=== PATIENT | female | born 1990 | race Caucasian/White ===

== ENCOUNTER 2024-09-23 09:48 | Outpatient (CLI) | payer BC, SELFPAY ==
--- NOTE | 2024-09-23 09:45 | CRLHL7_ITS ---
For Patients: As a result of the Century Cures Act, medical imaging exams and procedure reports are released immediately into your electronic medical record. You may view this report before your referring provider. If you have questions, please contact your health care provider. INDICATION: Check viability and dates TECHNIQUE: Transvaginal scanning was performed to optimally evaluate the IUP and adnexa. Ovarian blood flow was evaluated with color-flow and pulsed Doppler. COMPARISON: None FINDINGS: There is a living IUP with gestational age of 8 weeks 2 days by LMP and 8 weeks 3 days by today`s crown-rump length EDC based on today`s crown-rump length is 05/02/2025. The embryonic heart rate is measured at 165 beats per minute. The placenta is not yet formed. A 2.3 x 1.9 x 0.8 cm subchorionic hemorrhage is noted. Neither ovary is visualized. No adnexal mass or free fluid is apparent. IMPRESSION: 1. Living IUP with gestational age of 8 weeks 3 days by today`s crown-rump length and EDC of 05/02/2025. 2. 2.3 x 1.9 x 0.8 cm subchorionic hemorrhage. Dictated by Jatinder Castillo MD @ 09/25/2024 6:22:45 AM (Electronically Signed)
== END 2024-09-23 09:49 | disposition home or self-care (01) ==
LOC: US 09:48
PROVIDERS: PCP Family Medicine; Visit Provider Advanced Practice Midwife
DX: Z34.91 Encounter for supervision of normal pregnancy, unspecified, first trimester (principal); O20.9 Hemorrhage in early pregnancy, unspecified; Z3A.08 8 weeks gestation of pregnancy
CPT/HCPCS: 76817

== ENCOUNTER 2024-09-23 10:49 | Outpatient (CLI) | payer BC, SELFPAY | END 2024-09-23 10:50 | disposition home or self-care (01) | PROVIDERS: PCP Family Medicine; Visit Provider Advanced Practice Midwife | DX: Z34.91 Encounter for supervision of normal pregnancy, unspecified, first trimester (principal); Z3A.08 8 weeks gestation of pregnancy | CPT/HCPCS: 80306; 82565; 82570; 83020; 83021; 84156; 84450; 84460; 84520; 85660; 86592; 86593; 86703; 86704; 86706; 86762; 86780; 86787; 86803; 86850; 86870; 86880; 86900; 86901; 86905; 87086; 87340 ==

== ENCOUNTER 2024-12-10 08:05 | Outpatient (CLI) | payer BC, SELFPAY ==
--- NOTE | 2024-12-10 08:15 | CRLHL7_ITS ---
For Patients: As a result of the 21st Century Cures Act, medical imaging exams and procedure reports are released immediately into your electronic medical record. You may view this report before your referring provider. If you have questions, please contact your health care provider. OB ULTRASOUND GREATER THAN 14 WEEKS ANATOMY SURVEY, 12/10/2024 CLINICAL HISTORY: anatomy survey. COMPARISON: 09/23/2024. TECHNIQUE: Real time valdivia scale imaging of the fetus was performed transabdominally. FINDINGS: LMP: 07/27/2024. TERRENCE by LMP: 05/03/2025. GA: 19 weeks 3 days. Position: Multiple positions. Placenta/Cord: Anterior. Technique: TA. Placenta tip to internal OS: 5.4 cm. Umbilical Cord: 3 vessel cord. Placental Insertion: Central. Amniotic Fluid: 3.9 cm SDP. Cervix: Visualized. Technique: TA. Length of closed cervix: 5.5 cm. Observed structures: Calvarium/Spine: Cerebellum 21.2 cm, 21 weeks 2 days. Cisterna Magna 3.8 mm Nuchal Fold 2.7 mm Lateral Ventricle 6.5 mm CSP Midline Falx Choroid Plexus Spine Abdomen: Stomach Abd Cord Insert Urinary Bladder Kidneys Face: Orbital View Limbs: Upper Extremities Lower Extremities Hands Feet Vascular: 4 Ch Heart Biometry: BPD: 4.2 cm, 18 weeks 6 days. 24.4% HC: 16.4 cm, 19 weeks 1 day. 28.1% AC: 14.9 cm, 20 weeks 1 day. 70.1% FL: 3.1 cm, 19 weeks 4 days. 497% FL/AC: 20.8% HC/AC: 1.1 Heart Rate: 1398 bpm. Age by this US: 19 weeks 6 days. TERRENCE by this US: 04/30/2025. EFW: 313.6 grams 0 lb 11 oz. Percentile by TERRENCE: 67.6% IMPRESSION: 1. Concordance of clinical and sonographic dating. 2. Incomplete visualization of the diaphragm, nose, lips, profile, LVOT, RVOT, three vessel view and three vessel trachea view. Remainder of the anatomic survey normal. Short term follow-up recommended. 3. Indeterminate area of decreased echogenicity adjacent to the placenta measuring 8.0 x 2.0 x 2.5 cm, likely of doubtful significance, but recommend attention on follow-up. Sincere Salas M.D. Diagnostic Radiologist [email or web address] Transcribed: 1:16 PM DW/Dictated by: Sincere Salas MD @ 12/10/2024 12:58:00 PM (Electronically Signed)
== END 2024-12-10 08:06 | disposition home or self-care (01) ==
LOC: US 08:07
PROVIDERS: PCP Family Medicine; Visit Provider Obstetrics & Gynecology
DX: Z34.92 Encounter for supervision of normal pregnancy, unspecified, second trimester (principal); O35.AXX0 Maternal care for other (suspected) fetal abnormality and damage, fetal facial anomalies, not applicable or unspecified; Z3A.19 19 weeks gestation of pregnancy
CPT/HCPCS: 76805; 80306

== ENCOUNTER 2025-01-08 08:06 | Outpatient (CLI) | payer BC, SELFPAY ==
--- NOTE | 2025-01-08 08:15 | CRLHL7_ITS ---
For Patients: As a result of the Century Cures Act, medical imaging exams and procedure reports are released immediately into your electronic medical record. You may view this report before your referring provider. If you have questions, please contact your health care provider. OB ULTRASOUND FOLLOWUP LIMITED, 01/08/2025 CLINICAL HISTORY: Suboptimal views on anatomy scan. COMPARISON: 12/10/2024, 09/23/2024. TECHNIQUE: Real time valdivia scale imaging of the fetus was performed transabdominal. FINDINGS: TERRENCE by LMP/US: 05/03/2025. GA: 23 weeks 4 days. GESTATION: Single. CERVIX: Not visualized. POSITIONING: Vertex. AMNIOTIC FLUID: 5.2 cm, SDP. PLACENTA: Technique: TA. Placenta Position: Anterior. DOPPLERS: Heart Rate: 130 bpm. BIOMETRY: BDP: 5.6 cm, 23 weeks 1 day. 27% HC: 21 cm, 23 weeks 1 day. 18% AC: 20 cm, 24 weeks 5 days. 75% FL: 4.1 cm, 23 weeks 3 days. 31% FL/AC Ratio: 20.59% HC/AC Ratio: 1.05. EFW: 645 grams, 1 lb 7 oz. Age by this US: 23 weeks 4 days. TERRENCE by this US: 05/03/2025. Percentile by TERRENCE: 60% IMPRESSION: 1. Sonographic gestational age 23 weeks 4 days and sonographic due date 05/03/2025. 2. Estimated weight 68th percentile. Abdominal circumference 75th percentile. 3. Normal heart, diaphragm, profile, nose and lips. 4. Incidental placental madrigal versus residual blood products noted measuring 7.1 x 0.7 x 0.8 cm. Sincere Salas M.D. Diagnostic Radiologist [email or web address] Transcribed: 10:29 am DW/Dictated by: Sincere Salas MD @ 01/08/2025 10:11:00 AM (Electronically Signed)
== END 2025-01-08 08:07 | disposition home or self-care (01) ==
LOC: US 08:07
PROVIDERS: PCP Family Medicine; Visit Provider Obstetrics & Gynecology
DX: Z34.92 Encounter for supervision of normal pregnancy, unspecified, second trimester (principal); Z3A.23 23 weeks gestation of pregnancy
CPT/HCPCS: 76816

== ENCOUNTER 2025-02-05 10:34 | Outpatient (CLI) | payer BC, SELFPAY ==
--- NOTE | 2025-02-05 10:45 | CRLHL7_ITS ---
For Patients: As a result of the Century Cures Act, medical imaging exams and procedure reports are released immediately into your electronic medical record. You may view this report before your referring provider. If you have questions, please contact your health care provider. OBSTETRICAL ULTRASOUND ??? FOLLOW-UP, 02/05/2025 INDICATION: Cannabis use. CLINICAL HISTORY: LMP: 07/27/2024 TERRENCE by LMP: 05/03/2025 Gestational Age: 27 weeks 4 days COMPARISON: 12/10/2024, 01/08/2025 TECHNIQUE: Real-time valdivia-scale transabdominal imaging of the fetus was performed. FINDINGS: Fetus: Single Cervix: Not visualized positioning: Transverse Amniotic Fluid: DINESH: 28.2 cm 8.3 cm SDP Placenta technique: Transabdominal Placenta position: Anterior, fundal heart rate: 138 bpm BIOMETRY: BPD: 7.0 cm, 28 weeks 0 days, 52% HC: 26.2 cm, 28 weeks 3 days, 49% AC: 24.7 cm, 28 weeks 6 days, 81% FL: 5.1 cm, 27 weeks 2 days, 28% FL/AC Ratio: 20.66% HC/AC ratio: 1.06 EFW: 1203 grams; 2 lbs. 10 oz. age by this ultrasound: 28 weeks 1 day TERRENCE by this ultrasound: 04/29/2025 Percentile by TERRENCE: 66% IMPRESSION: 1. Sonographic gestational age 28 weeks 1 day and sonographic due date 04/29/2025. Good correlation with dates. Normal interval growth. 2. Estimated weight is 66th percentile. Abdominal circumference is 81st percentile. 3. Amniotic fluid single deepest pocket is 8.3 cm. DINESH is 28.2 cm. SINCERE ALBERTO M.D. Diagnostic Radiologist [email or web address] Transcribed: 2:[address]/Dictated by: Sincere Alberto MD @ 02/05/2025 1:39:00 PM (Electronically Signed)
== END 2025-02-05 10:35 | disposition home or self-care (01) ==
LOC: US 10:35
PROVIDERS: PCP Family Medicine; Visit Provider Obstetrics & Gynecology
DX: O99.323 Drug use complicating pregnancy, third trimester (principal); F12.10 Cannabis abuse, uncomplicated; Z3A.28 28 weeks gestation of pregnancy
CPT/HCPCS: 76816; 86850; 86870; J2791

== ENCOUNTER 2025-02-05 11:37 | Outpatient (CLI) | payer BC, SELFPAY | END 2025-02-05 11:38 | disposition home or self-care (01) | LOC: NFLDREF 11:38 | PROVIDERS: PCP Family Medicine; Visit Provider Obstetrics & Gynecology | DX: Z36.89 Encounter for other specified antenatal screening (principal); O26.893 Other specified pregnancy related conditions, third trimester; Z67.21 Type B blood, Rh negative; O40.3XX0 Polyhydramnios, third trimester, not applicable or unspecified; O99.343 Other mental disorders complicating pregnancy, third trimester; F32.A Depression, unspecified; F41.9 Anxiety disorder, unspecified; O99.213 Obesity complicating pregnancy, third trimester; E66.9 Obesity, unspecified; Z3A.28 28 weeks gestation of pregnancy | CPT/HCPCS: 86592; 86593; 86780; 86850; 86860; 86870; 86880; 86885; 86900; 86901; 86905; 86906; J2791 ==

== ENCOUNTER 2025-02-17 07:19 | Outpatient (CLI) | payer BC, SELFPAY ==
--- NOTE | 2025-02-17 07:15 | CRLHL7_ITS ---
For Patients: As a result of the Cures Act, medical imaging exams and procedure reports are released immediately into your electronic medical record. You may view this report before your referring provider. If you have questions, please contact your health care provider. OBSTETRICAL ULTRASOUND ??? LIMITED, 02/17/2025 INDICATION: Polyhydramnios. DINESH check. CLINICAL HISTORY: TERRENCE by LMP: 05/03/2025 Gestational Age: 29 weeks 2 days COMPARISON: 02/05/2025, 12/10/2024 TECHNIQUE: Real-time valdivia-scale transabdominal imaging of the fetus was performed. FINDINGS: Fetus: Single Cervix: Not visualized positioning: Vertex Amniotic Fluid: DINESH: 26.8 cm 7.5 cm SDP Placenta technique: Transabdominal Placenta position: Anterior heart rate: 145 bpm IMPRESSION: 1. Amniotic fluid index is 26.8 cm. Single deepest pocket is 7.5 cm. 2. Vertex position. SINCERE ALBERTO M.D. Diagnostic Radiologist [email or web address] Transcribed: 1:[address]/Dictated by: Sincere Alberto MD @ 02/17/2025 10:35:00 AM (Electronically Signed)
== END 2025-02-17 07:20 | disposition home or self-care (01) ==
LOC: US 07:20
PROVIDERS: PCP Family Medicine; Visit Provider Obstetrics & Gynecology
DX: O40.3XX0 Polyhydramnios, third trimester, not applicable or unspecified (principal); Z3A.29 29 weeks gestation of pregnancy
CPT/HCPCS: 76815

== ENCOUNTER 2025-02-26 07:24 | Outpatient (CLI) | payer BC, SELFPAY ==
--- NOTE | 2025-02-26 07:15 | CRLHL7_ITS ---
For Patients: As a result of the Cures Act, medical imaging exams and procedure reports are released immediately into your electronic medical record. You may view this report before your referring provider. If you have questions, please contact your health care provider. OBSTETRICAL ULTRASOUND ??? LIMITED, 02/26/2025 INDICATION: Polyhydramnios, CLINICAL HISTORY: LMP: 07/27/2024 Gestational Age: 30 weeks 4 days COMPARISON: 02/17/2025, 02/05/2025, 12/10/2024. TECHNIQUE: Real-time valdivia-scale transabdominal imaging of the fetus was performed. FINDINGS: Fetus: Single Cervix: Visualized, 5.4 cm positioning: Transverse, right Amniotic Fluid: DINESH: 23.0 cm 8.1 cm SDP Placenta technique: Transabdominal Placenta position: Anterior heart rate: 128 bpm IMPRESSION: Amniotic fluid single deepest pocket 8.1 cm. Four-quadrant DINESH 23.0 cm. SINCERE ALBERTO M.D. Diagnostic Radiologist [email or web address] Transcribed: 9:[address]/Dictated by: Sincere Alberto MD @ 02/26/2025 9:15:00 AM (Electronically Signed)
== END 2025-02-26 07:25 | disposition home or self-care (01) ==
LOC: US 07:24
PROVIDERS: PCP Family Medicine; Visit Provider Obstetrics & Gynecology
DX: O40.3XX0 Polyhydramnios, third trimester, not applicable or unspecified (principal); Z3A.30 30 weeks gestation of pregnancy
CPT/HCPCS: 76815

== ENCOUNTER 2025-03-12 09:11 | Outpatient (CLI) | payer BC, SELFPAY ==
--- NOTE | 2025-03-12 09:15 | CRLHL7_ITS ---
For Patients: As a result of the Century Cures Act, medical imaging exams and procedure reports are released immediately into your electronic medical record. You may view this report before your referring provider. If you have questions, please contact your health care provider. OB ULTRASOUND FOLLOW-UP, 03/12/2025 CLINICAL HISTORY: Cannibis use. COMPARISON: 02/26/2025. 02/17/2025, 02/05/2025. TECHNIQUE: Real time valdivia scale imaging of the fetus was performed. Evaluate anatomy. Transabdominal imaging performed. FINDINGS: TERRENCE by LMP: 05/03/2025. GA: 32 weeks 4 days. GESTATION: Single. CERVIX: Not visualized. POSITIONING: Breech. AMNIOTIC FLUID: 23.2 cm DINESH. 6.6 cm SDP. PLACENTA: Technique: TA. Placenta position: Anterior. DOPPLERS: heart rate: 145 bpm. BIOMETRY: BPD: 8.4 cm, 33 weeks 4 days. 73% HC: 31.6 cm, 35 weeks 3 days. 85% AC: 30.2 cm, 34 weeks 1 day. 88% FL: 6.1 cm, 31 weeks 5 days. 18% FL/AC Ratio: 20.27% HC/AC Ratio: 1.05. EFW: 2216 grams, 4 lb 14 oz. Age by this US: 33 weeks 5 days. TERRENCE by this US: 04/25/2025. Percentile by TERRENCE: 71% IMPRESSION: 1. Sonographic gestational age 33 weeks 5 days and sonographic due date 04/25/2025. Sonographic age is 8 days ahead of the clinical age. 2. Estimated weight 71st percentile. Abdominal circumference 88th percentile. Sincere Salas M.D. Diagnostic Radiologist [email or web address] Transcribed: 5:02 pm DW/Dictated by: Sincere Salas MD @ 03/12/2025 4:14:00 PM (Electronically Signed)
== END 2025-03-12 09:12 | disposition home or self-care (01) ==
LOC: US 09:12
PROVIDERS: PCP Family Medicine; Visit Provider Obstetrics & Gynecology
DX: O99.323 Drug use complicating pregnancy, third trimester (principal); F12.90 Cannabis use, unspecified, uncomplicated; Z3A.32 32 weeks gestation of pregnancy
CPT/HCPCS: 76816

== ENCOUNTER 2025-03-26 07:13 | Outpatient (CLI) | payer BC, SELFPAY ==
--- NOTE | 2025-03-26 07:15 | CRLHL7_ITS ---
For Patients: As a result of the Cures Act, medical imaging exams and procedure reports are released immediately into your electronic medical record. You may view this report before your referring provider. If you have questions, please contact your health care provider. OB ULTRASOUND FOLLOWUP/LIMITED, 03/26/2025 CLINICAL HISTORY: Polyhydramnios. COMPARISON: 03/12/2025, 02/26/2025, 02/17/2025. TECHNIQUE: Real time valdivia scale imaging of the fetus was performed. Transabdominal imaging performed. FINDINGS: TERRENCE by LMP: 05/03/2025. GA: 34 weeks 4 days. Positioning: Transverse. Amniotic Fluid: 19.2 cm DINESH. 7.3 cm SDP. Placenta: Technique: TA. Placenta Position: Anterior. Dopplers: Heart Rate: 130 bpm. IMPRESSION: Amniotic fluid single deepest pocket 7.3 cm. DINESH 19.2 cm. Sincere Salas M.D. Diagnostic Radiologist [email or web address] Transcribed: 8:25 am DW/Dictated by: Sincere Salas MD @ 03/27/2025 6:13:00 AM (Electronically Signed)
--- OUTSIDE RECORDS SUMMARY | 2025-03-27 01:03 | XMS_ITS | Encounter Summary ---
Author Organization [place] Address [facility] [address] Care Team Providers Care Paint Prep Technician Name Role Phone Manjeet Nogueira MD Primary Care Provider Arleen Sharp RN Unavailable [phone] Ramirez Gonzalez MD Unavailable Yuko Arzate PA-C Unavailable [phone] Encounter Details Date Type Department Care Team (Late st Contact Info) Description 02/17/2015 MyC Medical Advice Neurology Clinic [facility] 1st Floor, Clinic [address] [place] [phone] Ramirez Gonzalez MD [address] [place] [address] Social History Tobacco Use Types Packs/Day Years Used Date Smoking Tobacco: Former Cigarettes Q uit: 07/21/2012 Smokeless Tobacco: Never Alcohol Use Standard Drinks/Week Comments Yes 0 (1 standard drink = 0.6 oz pur e alcohol) Comments No Sex and Gender Information Value Date Recorded Sex Assigned at Not on file 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 Gender Identity Not on file Sexual Orientation Not on file documented as of this encounter Plan of Treatment Not on file documented as of this encounter Visit Diagnoses Not on filedocumented in this encounter Care Teams Paint Prep Technician Relationship Specialty Start Date End Date Manjeet Nogueira MD PCP - General Internal Medicine 09/04/12 Arleen Mathis, RAMU Nurse Coordinator Neurology 02/04/15 03/19/19 Ramirez Gonzalez MD [address] [facility] [address] [place] [address] Resident Neurology 02/17/15 Yuko Arzate PATelmaC [address] [facility] [address] [place] [address] Physician Parker Physician Parker 02/17/1509/22 documented as of this encounter
--- OUTSIDE RECORDS SUMMARY | 2025-03-27 01:03 | XMS_ITS | Encounter Summary ---
Author Organization [place] Address [facility] [place] [address] Care Team Providers Care Coat Cutter Name Role Phone Manjeet Nogueira MD Primary Care Provider Arleen Sharp RN Unavailable [phone] Ramirez Gonzalez MD Unavailable [phone] Yuko Arzate PA-C Unavailable [phone] Encounter Details Date Type Department Care Team (Late st Contact Info) Description 02/07/2015 MyC Medical Advice Neurology Clinic [facility] 1st Floor, Clinic [address] [place] [phone] Ramirez Gonzalez MD [address] [place] [address] Social History Tobacco Use Types Packs/Day Years Used Date Smoking Tobacco: Former Cigarettes Q uit: 07/21/2012 Smokeless Tobacco: Never Alcohol Use Standard Drinks/Week Comments Yes 0 (1 standard drink = 0.6 oz pur e alcohol) Comments No Sex and Gender Information Value Date Recorded Sex Assigned at Not on file Legal Sex Female 1:29 PM DIRECTOR CLINICAL INFORMATION SERVICES Gender Identity Not on file Sexual Orientation Not on file documented as of this encounter Plan of Treatment Not on file documented as of this encounter Visit Diagnoses Not on filedocumented in this encounter Care Teams Coat Cutter Relationship Specialty Start Date End Date Manjeet Nogueira MD PCP - General Internal Medicine 09/04/12 Arleen Mathis, RAMU Nurse Coordinator Neurology 02/04/15 03/19/19 Ramirez Gonzalez MD [address] [facility] [address] [place] [address] Resident Neurology 02/17/15 Yuko Arzate PATelmaC [address] [facility] [address] [place] [address] Physician Box Truck Owner Operator Physician Box Truck Owner Operator 02/17/1509/22 documented as of this encounter
--- OUTSIDE RECORDS SUMMARY | 2025-03-27 01:03 | XMS_ITS | Encounter Summary ---
Author Organization [place] Address [facility] [place] [address] Care Team Providers Care Dental Appliance Mechanic Name Role Phone Manjeet Nogueira MD Primary Care Provider Arleen Sharp RN Unavailable Ramirez Gonzalez MD Unavailable Yuko Arzate PA-C Unavailable [phone] Encounter Details Date Type Department Care Team (Late st Contact Info) Description 02/04/2015 MyC Medical Advice Neurology Clinic [facility] 1st Floor, Clinic [address] [place] [phone] Ramirez Gonzalez MD [address] [place] [address] Social History Tobacco Use Types Packs/Day Years Used Date Smoking Tobacco: Former Cigarettes Q uit: 07/21/2012 Smokeless Tobacco: Never Alcohol Use Standard Drinks/Week Comments Yes 0 (1 standard drink = 0.6 oz pur e alcohol) Comments No Sex and Gender Information Value Date Recorded Sex Assigned at Not on file 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 [address] [place] [address] Resident Neurology 02/17/15 Yuko Arzate PATelmaC [address] [facility] [address] [place] [address] Physician Glove Turner Physician Glove Turner 02/17/1509/22 documented as of this encounter
--- OUTSIDE RECORDS SUMMARY | 2025-03-27 01:03 | XMS_ITS | Encounter Summary ---
Author Organization [place] Address Pending sale to [facility]0 [facility] [place] [address] Care Team Providers Care Saddle And Harness Maker Name Role Phone Manjeet Nogueira MD Primary Care Provider Arleen Sharp RN Unavailable Ramirez Gonzalez MD Unavailable Yuko Arzate PA-C Unavailable Reason for Visit * Reason Onset Date Comments MyChart Communication 06/07/2014 Fioricet r efmarleni Encounter Details Date Type Department Care Team (Late st Contact Info) Description 06/07/2014 MyC Medical Advice [address] [phone] Yuko Arzate, PA-C [address] 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 Which pharmacy? Rx at [facility] desk. Rajeev Tipton RN * Telephone Encounter - Yuko Arzate PA-C - 06/10/2014 9:38 AM CDT Rx in my outbox * Telephone Encounter - Rajeev Tipton RN - 06/08/2014 7:15 AM CDT Fioricet is not a PSO medication, forwarded to provider for authorization. Rajeev Tipton RN documented in this encounter Plan of Treatment Not on file documented as of this encounter Visit Diagnoses Diagnosis Headache(784.0)- Primary Headache documented in this encounter Care Teams Saddle And Harness Maker Relationship Specialty Start Date End Date Manjeet Nogueira MD PCP - General Internal Medicine 09/04/12 Arleen Mathis RN Nurse Coordinator Neurology 02/04/15 03/19/19 Ramirez Gonzalez MD [address] [place] [address] Resident Neurology 02/17/15 Yuko Arzate PA-C [address] [place] [address] Physician Dermatologist And Dermatopathologist Physician Dermatologist And Dermatopathologist 02/17/1509/22 documented as of this encounter
--- OUTSIDE RECORDS SUMMARY | 2025-03-27 01:03 | XMS_ITS | Clinical Summary ---
Author Organization [place] Address [address] [facility] [place] [address] Care Team Providers Care Toilet Attendant Name Role Phone Manjeet Nogueira MD Primary Care Provider Ramirez Turner MD Unavailable Allergies Active Allergy Reactions Criticality Noted Date Comments Adhesive Tape 02/03/2015 Swelling on skin Cefprozil Nausea and Vomiting 05/21/2014 Dexamethasone 03/17/2015 aggitation Lactose GI Disturbance 07/15/2014 Metoclopramide 03/17/2015 aggitation Medications ondansetron (ZOFRAN) 4 MG tabletIndicatio ns:Headache(784 .0) Take 4 mg by mouth as needed 06/02/2014 Active traZODone (DESYREL) 50 MG tabletIndicatio ns:Headache(784 .0) 06/30/2014 Active propranolol (INDERAL) 80 MG tabletIndicatio ns:LUQ abdominal pain,Gastritis Take 80 mg by mouth daily 01/20/2015 Active MAGNESIUM OXIDE PO Take by mouth daily Active Pyridoxine HCl (VITAMIN B6 PO) Take 100 mg by mouth daily Active Merino-3 Fatty Acids (OMEGA-3 FISH OIL PO) Take by mouth daily Active gabapentin (NEURONTIN) 300 MG capsuleIndicati ons:Occipital neuralgia Take 1 capsule (300 mg) by mouth 3 times daily 90 capsule 2 02/25/2015 Active TiZANidine HCl (ZANAFLEX PO) Take 4 mg by mouth every 6 hours as needed for muscle spasms Active TRAMADOL HCL PO Take 50 mg by mouth every 6 hours as needed for moderate to severe pain Active indomethacin (INDOCIN) 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 [facility]erral [facility] per guidelines. 02/09/2015 colp with chronic inflammation and squamous atypia favor HPV. Recommend every 6 month pap with repeat colposcopy. 02/02/17 Would consider patient to be lost to follow-up. Postural orthostatic tachycardia syndrome 2014 Cervicalgia 08/21/2014 Vitamin D deficiency disease 08/21/2014 Headache 05/28/2014 Overview (07/02/2015): Problem list name updated by automated process. Provider to review Insomnia 05/28/2014 Tachycardia 05/21/2014 Overview (07/02/2015): Problem list name updated by automated process. Provider to review CARDIOVASCULAR SCREENING; LDL GOAL LESS THAN 160 05/21/2014 Immunizations Immunization Administration Dates Next Due HEPA 04/25/2010,12/24/2007 HIB (PRP-T) 03/13/1994,06/20/1993,04/11/1993 ,02/14/1993 HPV 09/04/2008,04/06/2008,12/24/2007 HepB 08/21/2014,06/20/1993,02/14/1993 ,1992 Historical DTP/aP 06/16/2014,06/20/1993,04/11/19 93,02/14/1993 Influenza (H1N1) 09/21/2009 Influenza (IIV3) PF 06/01/2014,06/24/2013 MMR (MMRII) 05/16/2004,03/13/1994 Mantoux Tuberculin Skin Test 06/24/2013 Meningococcal (Menomune ) 02/12/2014,04/17/2005 OPV, trivalent, live 06/16/1994,06/20/1993,04/11,02/14/1993 TD,PF 7+ (Tenivac) 04/17/2005 TDAP (Adacel,Boostrix) 02/12/2014 Family History Medical History Relation Comments Hypertension Father Psychotic Disorder Father ADHD Myocardial Infarction Maternal Grandfather Cancer Maternal Grandmother Diabetes Mother Hypertension Mother Lipids Mother Myocardial Infarction Paternal Grandfather Cancer Paternal Grandmother Relation Status Comments Father Maternal Grandfather Maternal Grandmother Mother Paternal Grandfather Paternal Grandmother Social History Tobacco Use Types Packs/Day Years Used Date Smoking Tobacco: Former Cigarettes Q uit: 07/21/2012 Smokeless Tobacco: Never Alcohol Use Standard Drinks/Week Comments Yes 0 (1 standard drink = 0.6 oz pur e alcohol) Adolescent Education Answer Date Record ed Getting School Help Needed Not on file 06/22 Comments No Sex and Gender Information Value Date Recorded Sex Assigned at Not on file 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 Gender Identity Not on file Sexual Orientation Not on file Last Filed Vital Signs Vital Sign Reading Time Taken Comments Blood Pressure 115/63 03/17/2015 2:40 PM CDT Pulse 91 03/17/2015 2:40 PM CDT Temperature 36.7 C (98.1 F) 02/24/2015 5:25 PM CDT Respiratory Rate 14 02/17/2015 2:12 PM CDT Oxygen Saturation 98% 02/24/2015 5:25 PM CDT Inhaled Oxygen Concentration - - Weight 96.6 kg (213 lb) 03/17/2015 2:40 PM CDT Height 158.8 cm (5' 2.5) 03/17/2015 2:40 PM CDT Body Mass Index 38.34 03/17/2015 2:40 PM CDT Plan of Treatment Not on file [place] [address] Care Teams Toilet Attendant Relationship Specialty Start Date End Date Manjeet Nogueira MD PCP - General Internal Medicine 09/04/12 Ramirez Gonzalez MD [address] [facility] [address] [place] [address] Resident Neurology 02/17/15
--- OUTSIDE RECORDS SUMMARY | 2025-03-27 01:03 | XMS_ITS | Encounter Summary ---
Author Organization [place] Address [facility] [place] [address] Care Team Providers Care Medical Biller Coder Name Role Phone Manjeet Nogueira MD Primary Care Provider Arleen Sharp RN Unavailable [phone] Ramirez Gonzalez MD Unavailable [phone] Yuko Arzate PA-C Unavailable [phone] Reason for Visit * Reason Onset Date Comments MyChart Communication 02/08/2015 pap Encounter Details Date Type Department Care Team (Latest Contact Info) Description 02/08/2015 MyC Medical Advice [address] [address] Zayra Antonio APRN SKIN DIVING TEACHER MyChart Communication (pap) Social History Tobacco Use Types Packs/Day Years Used Date Smoking Tobacco: Former Cigarettes Q uit: 07/21/2012 Smokeless Tobacco: Never Alcohol Use Standard Drinks/Week Comments Yes 0 (1 standard drink = 0.6 oz pur e alcohol) Comments No Sex and Gender Information Value Date Recorded Sex Assigned at Not on file Legal Sex Female 1:29 PM 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 documented in this encounter Plan of Treatment Not on file documented as of this encounter Visit Diagnoses Not on filedocumented in this encounter Care Teams Medical Biller Coder Relationship Specialty Start Date End Date Manjeet Nogueira MD PCP - General Internal Medicine 09/04/12 Arleen Mathis RN Nurse Coordinator Neurology 02/04/15 03/19/19 Ramirez Gonzalez MD [address] [facility] [address] [place] [address] Resident Neurology 02/17/15 Yuko Arzate, PATelmaC [address] [facility] [address] [place] [address] Physician Biofuels Production Manager Physician Biofuels Production Manager 02/17/1509/22 documented as of this encounter
--- OUTSIDE RECORDS SUMMARY | 2025-03-27 01:03 | XMS_ITS | Clinical Summary ---
Author Organization [facility] Address [address] [place] [id number] Care Team Providers Care Machinist Helper Name Role Phone Zulma Rcihards MD Unavailable [phone] Yoselyn Mathias MD Primary Care P rovider Allergies Active Allergy Reactions Criticality Noted Date Comments Adhesive Rash 02/04/2015 Latex portion of tape Plastic and paper tape as well as bandaids Blood-Group Specific Substance Other - Describe In Comment Field 08/12/2018 Patient has a Non Specific antibody and Probable passive Anti-D. Blood products may be delayed. Draw patient 24 hours prior to transfusion. Draw one red top and two purple top tubes for all type and screen orders. Cefprozil Other - Describe In Comment Field,Vomiting 02/04/2008 emesis Dexamethasone Agitation 03/16/2015 Pt states also feels tingling all over body Latex Other - Describe In Comment Field 08/19/2015 Swelling inside of her mouth Metoclopramide Hcl Agitation 03/16/2015 Medications valACYclovir (VALTREX) 1 gram tablet 0 Active traZODone (DESYREL) 100 mg tabletIndications :Anxiety and depression Take 1-2 Tablets (100-200 mg) by mouth at bedtime. 120 Tablet 3 3 Active phentermine (IONAMIN) 15 mg capsuleIndication s:Weight loss counseling, encounter for Take 1 Capsule (15 mg) by mouth once daily before a meal. 90 Capsule 3 4 Active topiramate (TOPAMAX) 25 mg tabletIndications :Weight loss counseling, encounter for Take 1 Tablet (25 mg) by mouth once daily. 90 Tablet 3 4 Active Pristiq 50 mg Extended-Release tablet Take 50 mg by mouth once daily in the morning. Active lamoTRIgine 150 mg tablet Take 150 mg by mouth once daily. 4 Active hyoscyamine (LEVBID) 0.375 mg Controlled-Releas e tabletIndications :Irritable bowel syndrome, unspecified type Take 1 Tablet (0.375 mg) by mouth every 12 hours. 60 Tablet 11 4 Active ondansetron (ZOFRAN) 4 mg tabletIndications :Irritable bowel syndrome with both constipation and diarrhea Take 1 Tablet (4 mg) by mouth every 8 hours if needed for Nausea/Vomit ing. 30 Tablet 4 Active Active Problems Problem Noted Date Diagnosed Date Hyperlipidemia 2023 Overview (2023): LDL of 130 on November 2022 [facility] Supervision of high-risk 1 Overview (09/02/2021): [facility] CONSULTATION ON 09/13/21 --Virtual Visit REASON FOR CONSULT: Pre-term prevention? Hillary? Recommendations for BMI>40 What would you like to discuss or review? pre-term prevention, reccomendations for BMI >40 [facility] Perinatology Services:(select all that apply) testing/delivery recommendations Consult on risks/management TODAY'S APPOINTMENT: MD Consultation PRIMARY DIAGNOSIS: 30 y.o. Estimated Date of Delivery: 04/09/22 H/O two prior deliveries: --2019: 34w5d PTROM --2020: 36w6d PTROM Closely spaced pregnancies POTS Depression/Anxiety--on Zoloft Rh NEG BMI 40 LAST GROWTH: 08/22/21 (10w1d) TERRENCE 04/09/22 REFERRING PHYSICIAN/PHONE/LAST UPDATE: Dr. 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 See Office visit dated 04/24/19: Return to normal screening interval if normal. 11/2022 NIL/HPV negative. Plan: Pap/HPV due 11/2025 POTS (postural orthostatic tachycardia syndrome) 09/05/2014 Vitamin D deficiency disease 08/21/2014 Generalized anxiety disorder 03/19/2013 Depressive disorder, not elsewhere classified Estimated Date of Delivery Comme nts Yes 05/03/2025 Resolved Problems Problem Noted Date Diagnosed Date Resolved Date History of delivery, currently in second trimester 11/30/2021 12/22/2022 History of premature rupture of membranes in previous , currently in second trimester 11/30/2021 12/22/2022 Encounter for care in first trimester of first 08/19/2021 12/22/2022 Overview (10/11/2021): [facility] name: OB history: 1. 2019 - Low PAPPA, delivery at 34 weeks PPROM 2. delivery at 36 weeks PPROM Other pertinenet history: 1. obesity BMI 39 2. depression, anxiety This : # h/o of 2 prior deliveries - referral to [facility] for hillary # BMI > 40 - detailed anatomy scan and echo - growth scans at 28, 34-36 weeks - weekly testing at 32 weeks # RH negative # depression, anxiety - changed from fluoxetine to zoloft --> zoloft not effective, changed back to fluoxetine - potential for SSRI withdrawal more prolonged for infant based on longer half life of fluoxetine Routine Care: - Goal Wt Gain: 0 lbs - smoking: none - h/o HSV: none - Genetic screen: cell free DNA - ASA prophylaxis: ASA prophylaxis 12-36 weeks for Moderate risk (2 or more of): Obesity w BMI>30 and Personal hx factors (low weight, SGA, previous adverse preg outcome, > 10 year interval) (2 prior deliveries) - Anatomy scan: - Immunizations: 1. COVID-19 2. tdap _ 3. flu _ - Rhogam: at 28 weeks - GTT: early - GBS: - Breastfeed: - BCM: - labor pain control: - social support: - Peds: , first, first trimester 08/17/2021 08/19/2021 Overview (08/17/2021): [facility] name: OB history: 1. 2019 PPROM at 34 weeks, also low PAPPA 2. 2020 PPROM at 36 weeks, no other problems. NSVDs for bother deliveries Other pertinenet history: 1. depression, anxiety on prozac usually, changes to sertraline during 2. IBS This : Short interval between pregnancies 2 prior deliveries Routine Care: - Goal Wt Gain: - smoking: - h/o HSV: - Genetic screen: - ASA prophylaxis: Consider ASA prophylaxis 12-36 weeks for Moderate risk (2 or more of): Obesity w BMI>30 and Personal hx factors (low weight, SGA, previous adverse preg outcome, > 10 year interval) - Anatomy scan: - Immunizations: 1. COVID-19 2. tdap _ 3. flu _ - Rhogam: - GTT: - Breastfeed: - BCM: - labor pain control: - social support: - Peds: [facility] Testing 07/16/20202020 Overview (08/06/2020): [facility]PP TESTING ONLY It's a Boy ! SO : Niall NEXT VISIT ALERTS: PLANS & FUTURE APPOINTMENTS: TESTING PLAN: weekly testing starting at 32 weeks gestation - Testing: Through 09/08/2020 GROWTH PLAN: - Growth: Next DELIVERY PLAN: - Scheduled delivery: - Preferred delivery location: [place] PRIMARY DIAGNOSIS: 29 y.o. Estimated Date of Delivery: 09/13/20 BMI=40 LAST GROWTH: 08/04/2020 34w2d EFW 2532 grams, percentile 69 % 06/23/2020 28w2d EFW 1224 grams, percnetile: 44% ECHO: REFERRING PHYSICIAN/PHONE/LAST UPDATE: Dr. Livia Reed [phone] Primary MD approves scheduling of recommended ultrasounds/testing: SPECIALISTS/CONSULTS: Include: Specialty MD Clinic Name Phone# [place] and ADD TO TREATMENT TEAM GENETICS: CARE COORDINATION: Needs H&P 30 days prior to delivery if MPP doing delivery PERTINENT LABS: Covid 07/06/2020=neg PERTINENT MEDS: PLAN OF CARE: Encounter for supervision of other normal , unspecified trimester 02/06/2020 021 Overview (02/29/2020): 29 y.o. History of spontaneous labor and delivery with hypertension Hx anxiety and depression (not currently on medication-some post- depression after first baby) IRRITABLE BOWEL SYNDROME POTS ASA indicated-High Risk for preeclampsia: Yes? (gestational hypertension at delivery)--will start in 2nd trimester Genetic screening: Panorama pending Desires Level II ultrasound BMI: 41.7 Ultrasound findings: * US for dating done on 01/22/20 1. Reynaga, viable, intrauterine . 2. Ultrasound EDC is 09/15/2020 with a gestational age of 6 weeks 1 days. This is consistent with LMP TERRENCE of 09/13/2020 3. No adnexal masses are seen. 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 [employer] FOB: Niall Blood Type: B Negative-nonspecific alloantibodies No history of transfusion or RhoGam First trimester Screen: completed, result pending Anatomy Scan: GTT/Hgb: GBS Status: Tdap Flu: completed through work Nitrous Oxide: Labor Plan: ALERTS: Depression/Anxiety Meds: Asthma: Med: Smoker: ETOH: Drug Use: Management Plans: Testing Delivery Peds: Breast or Bottle: IBS (irritable bowel syndrome) 08/11/2018 02/29/2020 Morbid exogenous obesity 05/22/201811/2021 Abscess 05/20/2018 02/29/2020 Overview (05/20/2018): Added automatically from request for surgery [id number] Vitreous floaters 06/17/2015 04/10/2018 Tachycardia 09/13/2014 02/16/2016 Nausea with vomiting 09/03/2012 016 Obesity, unspecified 08/18/2012 018 Counseling for parent-child problem, unspecified 03/19/2008 02/16/2016 Overview (03/19/2008): Particularly with mother. 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 Childhood obesity 08/18/2012 Overview (04/25/2010): BMI 31 age 19 Headache(784.0) 04/10/2018 Anxiety 12/01/2015 High risk with low PAPPA (-associated plasma protein A) 02/29/2020 Overview (01/20/2019): Plan for weekly testing starting at 32 weeks, serial growth, and delivery at or by 40 weeks. Obesity complicating pregnan cy in second trimester 12/22/2022 contractions 023 Threatened premature labor in third trimester 12/22/2022 Encounters Date Type Department Care Team Description 03/12/2025 Orders Only [facility] Scanner 1 scan: (1-Ord) [facility] OB F/U, 03/12/2025 02/26/2025 Orders Only [facility] Scanner 1 scan: (1-Ord) [facility], 02/26/2025 02/17/2025 Orders Only [facility] Scanner 1 scan: (1-Ord) [facility], 02/17/2025 02/05/2025 Orders Only [facility] Scanner 1 scan: (1-Ord) [facility] OB F/U, 02/05/2025 01/08/2025 Orders Only [facility] Scanner 1 scan: (1-Ord) [facility], 01/08/2025 from Last 3 Months Immunizations Immunization Administration Dates Next Due AMB INFLUENZA, IIV4 (AGE=>6M OS) MDV (Flu Clinic Only) 06/11/2020 AMB Influenza, IIV4 PF (=>6 mos Flulaval,Fluzone Fluarix)(Flu Clinic Only) 07/01/2018,06/06/2017 COVID-19 vaccine (AppleTreeBook NTech 30mcg/0.3mL) PF, MDV 11/11/2020,10/21/2020 DTP 06/16/2014, 4,06/20/1993,04/11,02/14/1993 DTaP 06/16/2014, 3,04/11/1993,02/14 HIB PRP-T (ActHIB,Hiberix) 03/13/1994,,04/11/1993,02/14 HPV 9 (Gardasil 9) 09/04/2008,04/06/2008, 008 Hepatitis A (Peds) 04/25/2010,12/24/2007 Hepatitis A, Unspecified 04/25/2010,12/24/2007 Hepatitis B (Adult) 08/21/2014 Hepatitis B (Peds) 06/20/1993,02/14/1993, 993 Hepatitis B, Unspecified 08/21/2014,06/02,02/14/1993,12/14 Hib Conjugate, Unspecified 03/13/1994,,04/11/1993,02/14 Human Papilloma Virus Vaccine 09/04/2008, 008,12/24/2007 Human Papilloma Virus Vaccin e, Unspecified 09/04/2008,04/06/2008,12/24/2007 Inactivated Polio Vaccine 06/16/1994,,04/11/1993,02/14 Influenza A (H1N1), Inactivated 09/21/2009 Influenza A (H1N1), Inactiva nuria (Age >=3 Years) 09/21/2009 Influenza Virus, Unspecified 06/10/2015 Influenza, IIV3 (Age 6-35 mos) 06/26/2009 Influenza, IIV3 (Age >=3 years) 06/01/20 14,06/24/2013,07/20/2012,09/10,10/27/2004,08/26/2003 Influenza, IIV4 07/09/2023,,06/24/2019,07/17,06/06/2017,06/06/2016,06/30/2014 MMR 05/16/2004,03/13/1994 Meningococcal Vaccine (Menactra) 04/17/2005 Meningococcal Vaccine (Menomune) 02/12/2014,03/31 Meningococcal, Unspecified 02/12/2014,04/17/2005 Oral Polio Vaccine 06/16/1994, 3,04/11/1993,02/14 Td (Age >=7 Years) 04/17/2005 Td, Preservative Free (age >= 7 Years) 200 5 Tdap 01/18/2022, 0,01/23/2019,02/12 Tuberculin (PPD) 06/24/2013 Tuberculin Skin Test, Unspecified 06/24/2013 Family History Medical History Relation Name Comments ADD / ADHD Brother TIN Good Health Brother TIN Good Health Daughter ADD / ADHD Father SANDY Allergies Father SANDY Diabetes Maternal Aunt Heart attack Maternal Aunt Heart Disease Maternal Grandfather Liver cancer Maternal Grandfather Good Health Maternal Grandmother Graves' disease Maternal Grandmother Hypertension Maternal Grandmother Thyroid Disease Maternal Grandmother Allergies Mother JAVIER Diabetes Mother JAVIER Hypertension Mother JAVIER Liver disease Mother JAVIER CUEVA, severe, of liver failure as a result Other Mother JAVIER Migraines Thyroid Disease Mother JAVIER Heart attack Paternal Grandfather Stomach cancer Paternal Grandmother Relation Name Status Comments Brother TIN Alive Daughter Alive Father SANDY Alive Maternal Aunt Maternal Grandfather Maternal Grandmother Alive Mother JAVIER Paternal Grandfather Paternal Grandmother Social History Tobacco Use Types Packs/Day Years Used Date Smoking Tobacco: Former Cigarettes Q uit: 02/14/2011 Smokeless Tobacco: Never Tobacco Cessation:Counseling Given: Not Answered Comments:smoked one or two cigarettes per week Alcohol Use Standard Drinks/Week Comments Yes 0 (1 standard drink = 0.6 oz pur e alcohol) weekends PHQ-2 Answer Date Recorded PHQ-2 TOTAL SCORE 0 02/08/2024 Social Connections Answer Date Recorded Do you often feel lonely or isolated from those around you? 0 06/10/2024 Financial Resource Strain Answer Date R ecorded Difficulty of Paying Living Expenses 2 06/10/2024 Difficulty of Paying Living Expenses 1 06/10/2024 Food Insecurity Answer Date Recorded Do you worry your food will run out before you are able to buy more? 2 06/10/2024 Transportation Needs Answer Date Record ed Does lack of transportation keep you from medica l appointments? 1 06/10/2024 Does lack of transportation keep you from work, meetings or getting things that you need? 1 06/10/2024 Housing Stability Answer Date Recorded What is your housing situation today? 1 06/10/2024 Utilities Answer Date Recorded Do you have trouble paying f or utilities (for example, heat, electricity, water, phone)? 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 Not on file Not on file Not on asad e Obstetrics History Para Term AB IAB SAB Ectopic Multiple Livin g Live Births 4 3 1 2 0 0 0 0 0 3 3 Date Outcome GA Total Labor Labor/2nd/3rd Weight Sex Type Anes PTL Elizabeth A1 A5 Name Clin 2018 34w 5d 0h 03m 2.23 kg (4 lb 14.7 oz) F Vag Epidur al Y Livin g Gala madera Complications: premat ure rupture of membranes (PPROM) with onset of labor after 24 hours of rupture in first trimester, antepartum (HC) Delivery Location:[facility] (UTD 2000 MB L&D TRIAGE) 2019 36w 6d 0h 03m 2.88 kg (6 lb 5.6 oz) M Vag Epidur al,Pud endal Livin g 7 8 RACHAEL SANCHEZ Complications:None Delivery Location:[facility] (UTD 2000 MB L&D TRIAGE) 2021 Term 39w 0d 10h 22m 10h 10m/0h 09m/0h 03m 2.93 kg (6 lb 7.4 oz) F Vag Epidur al Livin g 7 9 BG HAYLEE SANCHEZ, Khalida lawson MD Complications:None Delivery Location:Hospital ( UTD 2000 MB L&D TRIAGE) Current Last Filed Vital Signs Vital Sign Reading Time Taken Comments Blood Pressure 131/88 09/09/2024 5:10 PM MOTOR BOSS Pulse 102 09/09/2024 5:10 PM [employer]OR [employer] Temperature 36.3 C (97.3 F) 09/09/2024 5:10 PM MOTOR BOSS Respiratory Rate 18 09/09/2024 5:10 PM MOTOR BOSS Oxygen Saturation 99% 09/09/2024 5:10 PM MOTOR BOSS Inhaled Oxygen Concentration - - Weight 95.7 kg (211 lb) 09/09/2024 5:10 PM [employer]OR BOSS Height 157.5 cm (5' 2) 09/09/2024 5:10 PM MOTOR BOSS Body Mass Index 38.59 09/09/2024 5:10 PM MOTOR BOSS Plan of Treatment Health Maintenance Due Date Last Done Comments Pneumococcal series for age 6-49 (1 of 2 - PCV) 12/15/2011 COVID-19 vaccine series (4 - season) 2024 07/14/2022, 11/11/2020, 10/21/2020 Depression screening for age 12+ 02/07/2025 02/08/2024, 12/25/2022, 12/22/2022, Additional history exists Influenza Vaccine (Season Ended) 2025 07/09/2023, 08/17/2021, 06/11/2020, Additional history exists BMI (ht and wt on same day) for age 18+ 06/11/2025 06/11/2024, 12/22/2022, 10/12/2021, Additional history exists Pap test for age 21-65 12/22/2025 , 12/22/2022, 04/24/2019, Additional history exists Tetanus booster 01/19/2032 01/18/2022, 06/02, 01/23/2019, Additional history exists Hepatitis B series for 19+ Completed 08/21, 08/21/2014, 06/20/1993, Additional history exists HIV for age 15-65 Completed 08/17/2021, , 10/26/2019, Additional history exists Hepatitis C screening for ag e 18-79 Completed 08/17/2021, 02/26/2020, 10/26/2019 Tdap Completed 01/18/2022, 06/02, 01/23/2019, Additional history exists RSV vaccine for adults or (No Doses Required) Completed Procedures Procedure Name Priority Date/Time Associated Diagnosis Comments SCAN-ULTRASOUND REPORT 03/12/2025 12:00 AM CDT SCAN-ULTRASOUND REPORT 02/26/2025 12:00 AM CDT SCAN-ULTRASOUND REPORT 02/17/2025 12:00 AM CDT SCAN-ULTRASOUND REPORT 02/05/2025 12:00 AM CDT SCAN-ULTRASOUND REPORT 01/08/2025 12:00 AM CDT CASTING MACHINE ADJUSTER THIN PREP PAP SCREEN IMAGED Routine 12/22/2022 9:50 AM CDT Pap smear for cervical cancer screening ANTI HIV 1/2 Routine 08/17/2021 10:54 AM MOTOR BOSS , first, first trimester (HC) ANTI HCV Routine 08/17/2021 10:54 AM MOTOR BOSS , first, first trimester (HC) from Last 3 Months or Most Recently Relevant to Health Maintenance Results * SCAN-ULTRASOUND REPORT (03/12/2025 12:00 AM CDT) Only the most recent of5 resultswithin the time period is included. Anatomical Region Laterality Modality Other us Scanner OTHER Final Result * CASTING MACHINE ADJUSTER THIN PREP PAP SCREEN IMAGED (12/22/2022 9:50 AM CDT) Case Report Gynecologic Cytology Report Case: [id number] Authorizing Provider: José Miguel Cristobal Collected: 12/22/2022 0950 HORTENCIA Fitzgerald Ordering Location: [facility] Received: 12/22/2022 1709 Clinic First Screen: Ioana Rolon Specimen: CASTING MACHINE ADJUSTER ThinPrep Vial Screening, Cervical 01/16/2023 6:30 PM CDT [facility] INTERPRETATION/ RESULT NEGATIVE FOR INTRAEPITHELIAL LESION OR MALIGNANCY (NIL) (none) 01/16/2023 6:30 PM CDT [facility] at 1830 CDT SPECIMEN ADEQUACY Satisfactory for evaluation Endocervical component present 01/16/2023 6:30 PM CDT [facility] HPV REQUEST HPV and PAP 01/16/2023 6:30 PM CDT [facility] Date of LMP 12/06/2022 01/16/2023 6:30 PM CDT [facility] Last Pap Date 04/24/19 01/16/2023 6:30 PM CDT [facility] Last Pap Result NIL 6:30 PM CDT [facility] Abnormal Pap or [place] Bx in last 5 years No 01/16/2023 6:30 PM CDT [facility] Menstrual Status Regular Periods 01/16/2023 6:30 PM CDT [facility] [place] Bx Done Today No 01/16/2023 6:30 PM CDT [facility] Additional Information None given 01/16/2023 6:30 PM CDT [facility] Comment: Cytology is screened at [facility] - [address], [place] [address] and [facility] - [address], [place] [address] and [facility] - [address] [place] [address] Interpreted at [facility] - [address], [place] [address] Automated Review Successful 01/16/2023 6:30 PM CDT [facility] Comment:Specimen processed s uccessfully by automated associate professor of art history device, ThinPrep Imaging System, [employer] ANCILLARY TESTING CASTING MACHINE ADJUSTER HPV Ordered, Please see separate report 01/16/2023 6:30 PM CDT [facility] Note The pap test is a screening technique, not a diagnostic procedure. It is used primarily to screen for squamous cancers and precursor lesions. Published studies have shown that it is subject to both false negative and false positive results. The pap test should not be used as the sole means to diagnose or exclude pre-malignant and malignant lesions. 01/16/2023 6:30 PM CDT [facility] Other (Cervical) Non-Blood / Unknown 12/22/2022 9:50 AM CDT 12/22/2022 5:09 PM CDT José Miguel BURNETT PATHOLOGY/CYTOLOGY Final Result [facility] [address] [place] [address], * ANTI HCV (08/17/2021 10:54 AM MOTOR BOSS) HEPATITIS C ANTIBODY Non-React bjorn Non-React bjorn 08/17/2021 5:23 PM MOTOR BOSS [facility] Comment:Antibodies to HCV no t detected; does not exclude the possibility of exposure to HCV. Blood BLOOD SPECIMEN / Unknown Venipuncture / Unknown 08/17/2021 10:54 AM MOTOR BOSS 08/17/2021 10:56 AM MOTOR BOSS Yoselyn Mathias MD SEND OUTS Final Result Performing Organization Address City/[facility]/ZIP Co de Phone Number [facility] [address] [place] [address], * ANTI HIV 1/2 (08/17/2021 10:54 AM MOTOR BOSS) HIV-1/HIV-2 ANTIBODY Non-Reacti ve Non-Reacti ve 08/17/2021 5:22 PM MOTOR BOSS [facility] Comment:HIV-1 p24 and HIV-1/ HIV-2 Ab not detected. Blood BLOOD SPECIMEN / Unknown Venipuncture / Unknown 08/17/2021 10:54 AM MOTOR BOSS 08/17/2021 10:56 AM MOTOR BOSS us Yoselyn Mathias MD SEND OUTS Final Result [facility] [address] [place] [address], from Last 3 Months or Most Recently Relevant to Health Maintenance Insurance [address] [address] [facility] Advance Directives * Full Code (Latest Code Status on File) Date Activated Date Inactivated Comments 04/02/2022 4:03 AM 04/03/2022 5:38 PM Question Answer Comments Code Status Discussion: Reviewed Preferences * Full Code Date Activated Date Inactivated Comments 08/22/2020 9:00 AM 08/24/2020 3:41 PM Question Answer Comments Code Status Discussion: Not Discussed * Full Code Date Activated Date Inactivated Comments 03/10/2019 12:20 AM 03/11/2019 1:55 PM * Full Code Date Activated Date Inactivated Comments 05/27/2018 6:07 AM 05/28/2018 2:35 AM Question Answer Comments Code Status Discussion: Discussed Care Teams Machinist Helper Relationship Specialty Start Date End Date Yoselyn Mathias MD [address] [place] [address] PCP - General Family Practice 06/11/24 Zulma Richards MD [address] [facility] [address] [place] [address] Psychiatry 11/10/13
--- OUTSIDE RECORDS SUMMARY | 2025-03-27 01:03 | XMS_ITS | Encounter Summary ---
Author Organization [place] Address [address] [facility] [place] [address] Care Team Providers Care Line Construction Superintendent Name Role Phone Manjeet Nogueira MD Primary Care Provider Arleen Sharp RN Unavailable Ramirez Gonzalez MD Unavailable [phone] Yuko Arzate PA-C Unavailable [phone] Reason for Visit * Reason Onset Date Comments MyChart Communication 10/07/2014 IUD Encounter Details Date Type Department Care Team (Late st Contact Info) Description 10/07/2014 MyC Medical Advice [address] [address] Yuko Arzate, PATelmaC [address] [facility] [address] [place], [place] [address] MyChart Communication (IUD) Social History Tobacco Use Types Packs/Day Years Used Date Smoking Tobacco: Former Cigarettes Q uit: 07/21/2012 Smokeless Tobacco: Never Alcohol Use Standard Drinks/Week Comments Yes 0 (1 standard drink = 0.6 oz pur e alcohol) Comments No Sex and Gender Information Value Date Recorded Sex Assigned at Not on file Legal Sex Female 1:29 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 Gender Identity Not on file Sexual Orientation Not on file documented as of this encounter Plan of Treatment Not on file documented as of this encounter Visit Diagnoses Not on filedocumented in this encounter Care Teams Line Construction Superintendent Relationship Specialty Start Date End Date Manjeet Nogueira MD PCP - General Internal Medicine 09/04/12 Arleen Mathis, RAMU Nurse Coordinator Neurology 02/04/15 03/19/19 Ramirez Gonzalez MD [address] [facility] [address] [place] [address] Resident Neurology 02/17/15 Yuko Arzate PATelmaC [address] [facility] [address] [place] [address] Physician Pit Shovel Operator Physician Pit Shovel Operator 02/17/1509/22 documented as of this encounter
--- OUTSIDE RECORDS SUMMARY | 2025-03-27 01:04 | XMS_ITS | Encounter Summary ---
Author Organization [facility] Address [facility] [place] [address] Care Team Providers Care Check Processor Name Role Phone Manjeet Nogueira MD Primary Care Provider Arleen Sharp RN Unavailable [phone] Ramirez Gonzalez MD Unavailable [phone] Yuko Arzate PA-C Unavailable Encounter Details Date Type Department Care Team (Late st Contact Info) Description 10/28/2015 [facility] Medical Advice [address] [address] Millie Bustamante RN Social History Tobacco Use Types Packs/Day Years Used Date Smoking Tobacco: Former Cigarettes Q uit: 07/21/2012 Smokeless Tobacco: Never Alcohol Use Standard Drinks/Week Comments Yes 0 (1 standard drink = 0.6 oz pur e alcohol) Comments No Sex and Gender Information Value Date Recorded Sex Assigned at Not on file 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 Gender Identity Not on file Sexual Orientation Not on file documented as of this encounter Plan of Treatment Not on file documented as of this encounter Visit Diagnoses Not on filedocumented in this encounter Care Teams Check Processor Relationship Specialty Start Date End Date Manjeet Nogueira MD PCP - General Internal Medicine 09/04/12 Arleen aMthis RN Nurse Coordinator Neurology 02/04/15 03/19/19 Ramirez Gonzalez MD [address] [facility] [address] [place] [address] Resident Neurology 02/17/15 Yuko Arzate PA-C [address] [facility] [address] [place] [address] Physician Ballroom Dance Instructor Physician Ballroom Dance Instructor 02/17/1509/22 documented as of this encounter
== END 2025-03-26 07:14 | disposition home or self-care (01) ==
LOC: US 07:14
PROVIDERS: PCP Family Medicine; Visit Provider Obstetrics & Gynecology
DX: O40.3XX0 Polyhydramnios, third trimester, not applicable or unspecified (principal); Z3A.34 34 weeks gestation of pregnancy
CPT/HCPCS: 76815; 87081; 87653

== ENCOUNTER 2025-04-09 07:13 | Outpatient (CLI) | payer BC, SELFPAY ==
--- NOTE | 2025-04-09 07:15 | CRLHL7_ITS ---
For Patients: As a result of the Century Cures Act, medical imaging exams and procedure reports are released immediately into your electronic medical record. You may view this report before your referring provider. If you have questions, please contact your health care provider. OB ULTRASOUND LMP: 07/27/2024. TERRENCE by LMP or US: 05/03/2025. GA: 36 w, 4 d. Single. Comparison: 03/26/2025, 03/12/2025, 02/26/2025. INDICATION: History of polyhydramnios and cannabis use. TECHNIQUE: Real time grayscale imaging of the fetus was performed. Transabdominal. CERVIX: Visualized. Measurement: 4.2 cm. POSITIONING: Transverse, right. AMNIOTIC FLUID: 22.0 cm DINESH. 6.9 cm. SDP (N: greater than 2 x 1 cm) PLACENTA: Technique: Transabdominal. PLACENTA POSITION: Anterior. DOPPLER: heart rate: 144 bpm. BIOMETRY: BPD: 9.0 cm. 36 w, 4 d, 64.2 percent. HC: 34.4 cm. 39 w, 5 d, 90.5 percent. AC: 33.4 cm. 37 w, 2 d, 80.2 percent. FL: 6.9 cm. 35 w, 4 d, 21.3 percent. FL/AC ratio: 20.7 percent. HC/AC ratio: 1.0. EFW: 3101 g. Weight: 6 lbs, 13 oz. age by this US: 37 w, 2 d. TERRENCE by this US: 04/28/2025. Percentile by TERRENCE: 67.0 percent. IMPRESSION: 1. Sonographic gestational age 37 weeks 2 days and sonographic due date 04/28/2025. Sonographic age is 5 days ahead of the clinical age. 2. Estimated weight 67th percentile. Abdominal circumference 80th percentile. 3. Amniotic fluid single deepest pocket 6.9 cm. DINESH 22.0 cm. Sincere Salas M.D. Diagnostic Radiologist [email or web address] KRYSTA/maria elena arredondo/Dictated by: Sincere Salas MD @ 04/09/2025 8:22:00 AM (Electronically Signed)
== END 2025-04-09 07:14 | disposition home or self-care (01) ==
LOC: US 07:14
PROVIDERS: PCP Family Medicine; Visit Provider Obstetrics & Gynecology
DX: O40.3XX0 Polyhydramnios, third trimester, not applicable or unspecified (principal); O99.323 Drug use complicating pregnancy, third trimester; Z3A.36 36 weeks gestation of pregnancy
CPT/HCPCS: 76816

== ENCOUNTER 2025-04-10 08:07 | Outpatient (CLI) | payer BC, SELFPAY ==
[2025-04-10 08:28] VITALS: PULSE 123; O2SAT 97
[2025-04-10 08:33] VITALS: PULSE 110; O2SAT 97
[2025-04-10 08:38] VITALS: PULSE 109; O2SAT 97
[2025-04-10 08:41] VITALS: BP 120/60; PULSE 109
[2025-04-10 08:43] VITALS: PULSE 114; O2SAT 97
[2025-04-10 09:08] VITALS: RESP 18; TEMP 36.8
--- NOTE | 2025-04-10 09:16 | PM.OBLDTN ---
OB - Triage/Final Diagnosis Visit Information Narrative: The patient is a 34 year old 4 para 3 at 36 weeks gestation by LMP, who presented for external cephalic version. is complicated by malpresentation (transverse on ultrasound yesterday), history of delivery in the setting of PPROM, polyhydramnios (resolved), IBS, anxiety/depression. On arrival for ECV, NST was completed and found be reactive. She did have 1 variable deceleration, where prolonged monitoring performed. status was reassuring, reactive with a baseline 130 beats per minute, moderate variability, 15 x 15 accelerations present, no further decelerations. Transabdominal ultrasound was performed, where baby spontaneously converted to vertex presentation. Images printed. Patient was discharged without procedure. IV removed. Strict return precautions reinforced for signs/symptoms of labor, rupture membranes, vaginal bleeding or decreased movement. Recommend formal assessment of presentation on admission for labor. Evaluation Vital signs: Vital Signs - 24 hr 04/10/25 08:28 04/10/25 08:33 04/10/25 08:38 Temperature Pulse Rate Respiratory Rate Blood Pressure Pulse Oximetry 97 97 97 04/10/25 08:41 04/10/25 08:43 04/10/25 09:08 Temperature 98.2 F Pulse Rate 109 H Respiratory Rate 18 Blood Pressure 120/60 Pulse Oximetry 97
--- NOTE | 2025-04-10 10:44 | PC.OBNST ---
NST Note NST Note Start: 04/10/25 09:00 Freq: ONCE Status: Active Protocol: Document 04/10/25 10:43 MMB (Rec: 04/10/25 10:44 MMB [id number]) NST Note 4 Para (# of births) 3 EDC 05/03/25 Gestational Age In 36 Weeks & 5 Days Weeks & Days Patient Presented Other with Complaint(s) of Other Complaints Here for ECV Reactive Yes Appropriate for Yes Gestational Age RN Bobby Donovan rN Date 04/10/25 Reactive Yes Appropriate for Yes Gestational Age RAMU Collins RN Date 04/10/25 OB NST charge Yes Complete NST Note Yes via Write Note The provider's electronic signature indicates the NST is reactive/appropriate for gestational age. *Note to provider: If an addendum is required, open the patient's chart and click on the note under the Nurse/Allied Health tab.
== END 2025-04-10 10:00 | disposition home or self-care (01) ==
LOC: OB CLI 08:08 → OB 09:46
PROVIDERS: PCP Family Medicine; Visit Provider Obstetrics & Gynecology
DX: O32.1XX0 Maternal care for breech presentation, not applicable or unspecified (principal); Z3A.36 36 weeks gestation of pregnancy
CPT/HCPCS: 59025; 76815; G0463

== ENCOUNTER 2025-04-16 07:09 | Outpatient (CLI) | payer BC, SELFPAY ==
--- NOTE | 2025-04-16 07:15 | CRLHL7_ITS ---
For Patients: As a result of the Cures Act, medical imaging exams and procedure reports are released immediately into your electronic medical record. You may view this report before your referring provider. If you have questions, please contact your health care provider. OB ULTRASOUND BIOPHYSICAL PROFILE LMP: 07/27/2024. TERRENCE by LMP: 05/03/2025. GA: 37 w, 4 d. Single. Comparison: 04/09/2025, 03/26/2025, 03/12/2025. INDICATION: Polyhydramnios. TECHNIQUE: Real time valdivia scale imaging of the fetus was performed. Transabdominal. CERVIX: Not visualized. POSITIONING: Vertex. AMNIOTIC FLUID: 19.2 cm. SDP : 5.7 cm(N: greater than 2 x 1 cm) BIOPHYSICAL PROFILE: Total score: 2. Gross body movements: 2. tone: 2. Respiratory activity: 2. Amniotic fluid: 2. (SDP N: greater than 2 x 1 cm) Total: 05/08. PLACENTA: Technique: Transabdominal. PLACENTA POSITION: Anterior. DOPPLER: heart rate: 141 bpm. IMPRESSION: Normal biophysical profile 05/08. Amniotic fluid single deepest pocket 5.7 cm. DINESH 19.2 cm. Sincere Salas M.D. Diagnostic Radiologist [email or web address] KRYSTA/everton JR/Dictated by: Sincere Salas MD @ 04/16/2025 9:30:00 AM (Electronically Signed)
== END 2025-04-16 07:10 | disposition home or self-care (01) ==
LOC: US 07:10
PROVIDERS: PCP Family Medicine; Visit Provider Obstetrics & Gynecology
DX: O40.3XX0 Polyhydramnios, third trimester, not applicable or unspecified (principal); Z3A.37 37 weeks gestation of pregnancy
CPT/HCPCS: 76819

== ENCOUNTER 2025-04-18 02:39 | Outpatient (CLI) | payer BC, SELFPAY ==
[2025-04-18 02:59] VITALS: BP 116/71; PULSE 113; RESP 18; TEMP 36.8
--- NOTE | 2025-04-18 06:28 | PC.OBNST ---
NST Note NST Note Start: 04/18/25 02:43 Freq: ONCE Status: Active Protocol: Document 04/18/25 06:23 JONO (Rec: 04/18/25 06:24 JONO [id number]) NST Note 4 Para (# of births) 3 EDC 05/03/25 Gestational Age In 37 Weeks & 6 Days Weeks & Days High Risk Factors History of Labor/Delivery Patient Presented Contractions/cramping with Complaint(s) of Reactive Yes RN Spencer Noble, RN Date 04/18/25 Reactive Yes RAMU Padilla, RAMU Date 04/18/25 OB NST charge Yes Complete NST Note Yes via Write Note The provider's electronic signature indicates the NST is reactive/appropriate for gestational age. *Note to provider: If an addendum is required, open the patient's chart and click on the note under the Nurse/Allied Health tab.
== END 2025-04-18 06:05 | disposition home or self-care (01) ==
LOC: OB OUT 02:39 → OB 02:39
PROVIDERS: PCP Family Medicine; Visit Provider Obstetrics & Gynecology
DX: O47.1 False labor at or after 37 completed weeks of gestation (principal); Z3A.37 37 weeks gestation of pregnancy
CPT/HCPCS: 59025; 80306; G0463

== ENCOUNTER 2025-04-23 07:12 | Outpatient (CLI) | payer BC, SELFPAY ==
--- NOTE | 2025-04-23 07:15 | CRLHL7_ITS ---
For Patients: As a result of the Cures Act, medical imaging exams and procedure reports are released immediately into your electronic medical record. You may view this report before your referring provider. If you have questions, please contact your health care provider. OB ULTRASOUND BIOPHYSICAL PROFILE/LIMITED, 04/23/2025 CLINICAL HISTORY: Polyhydramnios. COMPARISON: 04/16/2025, 04/09/2025, 03/26/2026. TECHNIQUE: Real time valdivia scale imaging of the fetus was performed. Transabdominal imaging performed. FINDINGS: TERRENCE by LMP: 05/03/2025. GA: 38 weeks 4 days. Gestation: Single. Cervix: Visualized. Positioning: Transverse, maternal right. Amniotic Fluid: 19.6 cm DINESH. 8.3 cm SDP. Biophysical Profile: Gross Body Movements: 2 Tone: 2 Respiratory Activity: 2 Amniotic Fluid SDP: 2 Total Score: 8 Placenta: Technique: TA. Placenta Position: Anterior. Dopplers: Heart Rate: 131 bpm. IMPRESSION: 1. Biophysical profile score 8/8. 2. Polyhydramnios with single deepest pocket measuring 8.3 cm. DINESH measures 19.6 cm. Lexis Espinosa M.D. Diagnostic/Breast Radiologist [email or web address] Transcribed: 2:32 pm DW/Dictated by: Lexis Espinosa MD @ 04/27/2025 1:01:00 PM (Electronically Signed)
== END 2025-04-23 07:13 | disposition home or self-care (01) ==
LOC: US 07:13
PROVIDERS: PCP Family Medicine; Visit Provider Obstetrics & Gynecology
DX: O40.3XX0 Polyhydramnios, third trimester, not applicable or unspecified (principal); O99.213 Obesity complicating pregnancy, third trimester; Z3A.38 38 weeks gestation of pregnancy
CPT/HCPCS: 76819

== ENCOUNTER 2025-04-23 15:16 | Inpatient (IN) | payer BC, SELFPAY ==
[2025-04-23] VITALS (11 sets, daily range): BP systolic 109–136; BP diastolic 55–70; PULSE 100–123; RESP 16–18; TEMP 36.7–37; O2SAT 96–98; BMI 45.3
--- NOTE | 2025-04-23 15:21 | P.LDBA_ITS ---
Subjective History of Present Illness Date Seen: 04/23/25 Narrative: Therese is being admitted to Labor and Delivery for an ECV followed by IOL for fetus in variable presentation. She is a 34 year old at weeks gestation. Her full history and physical was dictated by Dr. Wagner on 04/16/25. Please see this for details. The patient's was complicated by mild polyhydramnios diagnosed on 02/05/2025 which resolved on 02/26/2025. Her fetus was noted to be variably transverse with the head on maternal right or vertex. Ultrasound performed yesterday showed fetus in the transverse lie with head on the maternal right, back up. The patient has a history of PPROM in 2 of her previous pregnancies and is concerned that she would have SROM with a possible cord prolapse at home if the fetus remains transverse, back-up. The plan is to perform an external cephalic version (ECV) and if successful start an IOL most likely with vaginal cytotec for cervical ripening followed by pitocin and AROM with possible. I reviewed a consent form for ECV. Reviewed how and ECV is performed. Risks: SROM, spontaneous labor, intolerance of the procedure/distress and placental abruption: all less than 1%. She understands that if the complications occur and the fetus is not vertex or showing evidence of distress, an urgent section would be recommended. Specific Issues/Plans [id number] Partner: Niall? H&P:? 04/16 Dr. Wagner #Variable presentation - transverse on 04/09 > vertex when presented for ECV on 04/10 [ ] Scan for presentation on admission for delivery IOL at 39 weeks # Obesity BMI 38.6 at NOB weekly testing at 37 weeks growth US at 32 weeks delivery recommended: elective delivery considered at >39.0 weeks # Polyhydramnios (mild - diagnosed on February 05)-Resolved normal x2 1 hr gtt: 112 [id number] DINESH [id number] growth # Hx of PPROM with 2 deliveries? * 35 and 36 weeks? # Hx of GHTN developed just after delivery no need for treatment baseline PreE labs- WNL, UPCR 0.04. #? Anxiety and Depression on Lamictal, Trazodone and Pristiq meds managed by Audelia Mcdowell with [facility]? #? POTS Discussed at visit on 11/12/24. Patient has managed this during her prior pregnancies, was slightly worse in third trimester. Written information from [facility] provided to patient.? Does not have syncope # THC gummy use prior to UDS at NOB: + THC 2nd Tri: +THC 3rd Tri: declines use - IBS improved # Rh negative recommend Rhogam at 28 wks. Given 02/05/25 Rh +, detected with [place] Antibody screen + with unidentified antibodies by our lab and the red cross. Talked to blood bank about implication of positive antibody screen with inability to identify antibody. Blood bank said most likely false positive, recommended elution studies: No significant antibody noted; recommended Rh neg blood for transfusion. # Positive RPR with negative treponema palladium false positive result Imaging:??? Ultrasounds: 09/23/2024: 8 weeks and 3 days by CRL, sonographic TERRENCE 05/02/2025. Subchorionic hemorrhage 2.3 cm in greatest dimension. 12/10/2024: 19 weeks, 3 days. Anterior placenta without previa. Three-vessel cord. Normal fluid. EFW 67.6%, AC 70.1%. Incomplete visualization of diaphragm, nose, lips, profile, LVOT, RVOT, three-vessel view and vessel trachea view. Indeterminate area of decreased echogenicity adjacent to the placenta measuring 8 x 2 x 2.5 cm, doubtful significance. 01/08/2025: EFW 68%, AC 75%. Normal heart, diaphragm, profile, nose and lips. Placental Gillespie versus residual blood products measuring 7.1 x 0.7 x 0.8 cm. 02/05/2025: Transverse, DINESH 28.2, SDP 8.3 cm. AC 81%, EFW 66%. 02/17/2025: Cephalic lie, DINESH 26.8. SDP 7.5 cm 02/26/25: transverse, DINESH 23, SDP 8.1 03/12/25: Breech, DINESH 23.2, SDP 6.6, AC 88%, EFW 71%. 03/26/25: Transverse, DINESH 19.2, SDP 7.3 04/09/25: Transverse, DINESH 22, SDP 6.9, AC 80.2%, EFW 67%. 04/16/25: Cephalic, DINESH 19.2, SDP 5.7. 04/23/25: Transverse, head to maternal right. DINESH 19.6 cm, SDP 8.3 cm Vaccinations:?? COVID: declines Flu: had in 2023 Tdap: 02/17? Last pap:? 12/22/22 NIL, - HPV? OB - Problem Based A/P Additional Plan (1) Unstable lie: Status: Acute Plan 1. Consent form reviewed and signed for external cephalic version (ECV) 2. Dr. Perez to assist with the ECV 3. Blood type: B negative. Rhogam 02/05/25 4. GBS negative. 5. If ECV successful then cervical ripenin with vaginal cytotec followed by pitocin and AROM. 6. Dr. Valentine to assume care at 7Am on 04/25/2025. OB Exam Physical Exam Vital signs: GENERAL APPEARANCE: Pleasant, [, well-groomed woman in no acute distress. VITAL SIGNS: as noted in nursing notes HEAD: Normocephalic, atraumatic. THYROID: no masses, nodularity, tenderness or enlargement. LUNGS: Clear to auscultation bilaterally without wheezes, rales or rhonchi. HEART: Regular rate and rhythm with normal S1 and S2. No gallop, rub or murmur. ABDOMEN: Gravid. Soft, nontender, nondistended, with normal bowels sounds throughout. PRESENTATION: Bedside ultrasound performed: head in maternal RUQ, back on maternal Left. (Breech). EFM: Baseline 135 bpm. Moderate variability. Accelerations: present. Decelerations: absent. Reactive. TOCO: Q 3-12 minutes: patient denies feeling them. SVE: Pending until after the ECV. After successful ECV: ) 0.5cm/50%/-4/soft/mid. Purvis: 4. EXTREMITIES: No cyanosis, clubbing,varicosities or edema. NEUROLOGIC: Normal gait and balance. Normal deep tendon reflexes at bilateral patella 2+/2, equal without clonus. PSYCHIATRIC: alert and oriented x3. Normal speech pattern, eye contact and affect. SKIN: Warm, dry, and well perfused. Good turgor. No lesions, nodules or rashes.
[2025-04-23 15:32] LABS: Hematocrit 34.5 % (33.0-51.0); Hemoglobin* 11.3 gm/dL (12.0-16.0); Immature Granulocytes Abs Auto 0.09 K/uL (0.00-0.30); Immature Granulocytes Pct Auto 0.9 %; Mean Corpuscular HGB Conc 33 gm/dL (32-36); Mean Corpuscular Hemoglobin 27 pg (26-34); Mean Corpuscular Volume 82 fL (80-100); RDW Coefficient of Variation % 14.9 % (11.5-15.5); Red Blood Count 4.22 m/uL (4.00-5.20); White Blood Count* 9.90 K/uL (4.50-11.00)
[2025-04-23 15:50] LABS: Lymphocytes Absolute Auto 1.70 K/uL (0.90-2.90); Slide Review Reflex No
[2025-04-23] MEDS: TERBUTALINE 1 MG/ML INJ 0.25 MG SUBCUT (15:57)
--- NOTE | 2025-04-23 16:52 | P.PCN_ITS ---
Procedure Note Time Seen by Provider: 16:52 Date Seen: 04/23/25 Date of procedure: 04/23/25 Will [facility] bill your pro fee for this procedure?: Yes Procedure: Preprocedure diagnosis: A 34-year-old 4 para 10/02/2000 at 38 weeks 4 days gestation with fetus in an unstable lie. Postprocedure diagnosis: Same Procedure: Paternal cephalic version Anesthesia: None Surgeon: Clarisa Escobar MD Digital Marketing Executive: Kristina Perez MD Specimen: None Findings: On bedside ultrasound prior to attempting the ECV the fetus was noted to be in breech presentation with the head in the maternal right upper quadrant with the back on the maternal left side and amari breech with the breech in the midline to right lower quadrant. Procedure: Prior to performing the ECV a procedure consent form was reviewed and signed all the patient's questions answered. The patient received subcutaneous terbutaline 10 minutes prior to performing the ECV. Copious amount of ultrasound gel was applied to the patient's abdomen. The head was grasped by Dr. Perez the breech was grasped by Dr. Escobar. Two attempts were try to turn the baby in the counter-clockwise manner without success. Between attempts the heart rate was visualized with the ultrasound and noted to be 120s-130s. An attempt was then made to turn the baby in the clockwise manner and that works to move the baby into the vertex presentation with the back to maternal left. The patient tolerated this procedure well. Plan to proceed with induction of labor.
[2025-04-24] VITALS (29 sets, daily range): BP systolic 99–126; BP diastolic 51–76; PULSE 75–102; RESP 16–18; TEMP 36.6–37.2; O2SAT 88–100
[2025-04-24] MEDS: LACTATED RINGERS 1000 ML 1,000 ML 1200 ML IV ×2 (04:19→05:12)
--- NOTE | 2025-04-24 04:29 | PM.OBPNL ---
Subjective Time Seen by Provider: 04:05 Date Seen: 04/24/25 Narrative: Subjective: Therese reports feeling more uncomfortable with contractions over the last 30-45 minutes. I was called by the patient's nurse because she was feeling a ?scratching sensation? at her cervix and was concerned that the baby had turned back to breech or transverse presentation. Verbal consent obtained to perform a bedside ultrasound. She has received 4 doses of vaginal Cytotec. She received 10 mg IM morphine and 100 mg Vistaril p.o. at 10:00 p.m. on 04/23/2025. She is interested in epidural. heart rate and contractions have been difficult to monitor with external monitors due to patient body habitus. Gave verbal consent to have internal monitors placed. She had internal monitors with all 3 of her previous deliveries. Vital signs: Per electronic medical record. EFM: Baseline 130s, no accelerations, 1 variable deceleration to the 60s that lasted 15 seconds at 4:19 a.m. with 2 early appearing decelerations at 4:29 a.m. and 4:30 a.m., moderate variability. Category 2. [place]: Contractions every 2 minutes. SVE: 4 cm/70 %/-2. SROM with cervical check at 04:14am. Clear fluid. IUPC and FSE placed. Assessment: 34-year-old 4 para 1203 at 38 weeks 5 days gestation undergoing induction of labor due to variable presentation and concern for possible SROM at home: increased risk for cord prolapse. Plan: 1. The patient is unlikely to require Pitocin for labor augmentation/induction. 2. Requested an epidural for labor analgesia. 3. The patient has a history of hemorrhage with her 2nd delivery and is on Pristiq for anxiety and depression and was told by her psychiatric provider that Pristiq increases the risk for bleeding so planning TXA during the 2nd stage. Objective Vital Signs: Last Vital Signs Temp 97.9 F 04/24/25 02:14 Pulse 90 04/24/25 04:23 Resp 16 04/24/25 02:14 BP 102/58 L 04/24/25 04:23 Pulse Ox 97 04/23/25 18:56
[2025-04-24] MEDS: ONDANSETRON 2 MG/ML inj 4 MG IV (05:05)
[2025-04-24] MEDS: TERBUTALINE 1 MG/ML INJ 0.25 MG SUBCUT (05:09)
[2025-04-24] MEDS: OXYTOCIN 30 unit/500 ML in NS 30 UNIT/500 ML BAG 300 UNIT IVPB (05:34)
[2025-04-24] MEDS: TRANEXAMIC ACID 100 MG/ML INJ 1000 MG IV (05:37)
--- NOTE | 2025-04-24 06:02 | W.PM.OBVAGDE ---
OB Procedure Vag Delivery Mother Details Mother Details: Therese is a 34 year-old G 4 P1203 now 4 admitted on 04/23/2025 at 4:00 p.m. at 38 Weeks, 4 Days gestation for induction of labor due to variable lie, back up transverse with concern for possible cord prolapse if SROM. SROM occurred at 4:14 a.m. on 04/24/2025 with clear fluid. Labor Analgesia: None Pitocin: No Labor onset: 04/24/2025 at 3:00 a.m.. Complete: 04/24/2025 at 5:27 a.m.. Pushin04/24/2025 at 5:27 a.m.. After spontaneous rupture of membranes the contractions became more intense and the patient requested epidural. When the patient was sitting up to attempt epidural was noted to be decelerations to the 80s-90s with return to approximate the 110s between contractions. There is also noted to be tachy systole if the contractions. The attempt at epidural was discontinued. The patient was 1st placed in the left lateral position and then on hands and knees an attempt to resuscitate the fetus. heart rate was in the 90s between 5:00 a.m. and 5:05 a.m. and increased to 90s to 110s on hands and knees. She received 1 dose of terbutaline due to the tachy systole at approximately 5:08 a.m.. The heart rate rebound to the 120 is between 5:09 and 5:11 a.m.. She then had 3 deep late-appearing decelerations to the 60s with rebound tachycardia. A code santiago was called and the patient was urgently moved to the operating room a for possible emergency section under general anesthesia. Verbal consent was obtained to perform a . In operating room the heart rate was noted to be 120s-150s with early-appearing deceleration to the 100s contractions. Patient reported that she felt like she needed to push she was noted be completely dilated at 5:27 a.m. and began pushing. At 5:34 a.m. a viable female infant delivered in vertex direct OA presentation with restitution to the ROT position. The infant delivered over an intact perineum via spontaneous vaginal delivery. The was placed on maternal abdomen. Cord was clamped and cut immediately and the handed to the waiting emergency room physician and nursing staff. Nose and mouth were bulb suctioned. weight 6 lb 11 oz. 6 at 1 minute and 8 at 5 minutes. Cord gases were not sent due to reassuring Apgars. cord blood was not sent as the patient's [place] test showed the is Rh positive the patient will receive RhoGAM . Shoulder dystocia: No. Nuchal cord: Yes: Single loose nuchal cord and body cord. The infant was delivered through these loops of cord. Placenta delivered spontaneously and complete at 5:41 a.m. with a 3 vessel cord. The patient received 1 g IV TXA and 30 units Pitocin in 500 mL IV fluid wide open after delivery. No evidence of uterine atony or lacerations after delivery. Laceration(s): None. Blood loss: 100 mL. Blood loss measurement type: Estimated Sponge and needles counts are correct. Specimen: Placenta. Portion of umbilical cord sent due to patient reporting use of marijuana during . Mother and infant were stable after delivery. Infant's name: Stefanie The patient is planning on breast feeding. : 3 Para: 4 Weeks Gestation: 38 Admission Date: 04/23/25 Additional Details Amniotic Membrane Status: SROM Amniotic Membrane Rupture Date: 04/24/25 Amniotic Membrane Rupture Time: 04:14 Amniotic Membrane Fluid Description: Clear Analgesia/Anesthesia Type: None Waterbirth: No Pitcoin: No Intrapartal Events: Distress Induction Method: per misoprostol protocol Delivery augmentation: rupture of membranes Labor Onset: 03:00 Complete: 05:27 Pushin:27 Heart: See review of heart tones during the 2nd stage above. Delivery Details Delivery Date: 04/24/25 Delivery Time: 05:34 Route of delivery: Gender: Female Infant Viability: Alive; Heart Rate Present Position at Delivery: OA Delivery Details: Delivered via spontaneous vaginal delivery. was placed on maternal abdomen.? Cord was clamped and cut immediately.. Nose and mouth were bulb suctioned.? Infant weight 6 lb 11 oz. 1 Minute Interval Total Score: 6 5 Minute Interval Total Score: 8 Additional Details Shoulder Dystocia: No Placenta Delivery Time: 05:41 Placental Delivery Description: Spontaneous Procedure Done: Global Blood Loss: 100 Laceration: None Blood Loss Measurement Type: EBL Bakri Used: No Sponge/Need Count Correct: Yes Cord Vessel Description: 3 Vessels Event Summary Status: Mother and were stable after delivery. Disposition: floor
[2025-04-24] MEDS: IBUPROFEN 600 MG TABLET PO ×2 (09:15→17:46)
[2025-04-24] MEDS: ACETAMINOPHEN 500 MG TABLET 1000 MG PO ×2 (11:19→23:12)
[2025-04-25 05:10] VITALS: BP 110/61; PULSE 88; RESP 16; TEMP 36.7; O2SAT 97
[2025-04-25 05:59] LABS: Hemoglobin* 9.8 gm/dL (12.0-16.0)
[2025-04-25 08:00] VITALS: BP 104/68; PULSE 68; RESP 16; TEMP 36.9; O2SAT 98
[2025-04-25] MEDS: DESVENLAFAXINE SUCCINATE ER 50 MG TAB PO (08:41)
--- NOTE | 2025-04-25 09:10 | PM.OBDSVD1 ---
DS: Providers Provider Time Seen by Provider: 09:00 Date Seen: 04/25/25 Date of admission: 04/23/25 15:16 Primary care physician: Yoselyn Mathias MD Admitting Clinician: Clarisa Escobar MD Attending Physician on discharge: Clarisa Escobar MD Date of Discharge: 04/25/25 DS: Diagnosis Discharge Diagnosis (1) (normal spontaneous vaginal delivery): Status: Acute Problem details: Girl. Stefanie. Apgars 6/8. Weight 6#11oz. Code white. Complete in the OR. Exam Narrative: Exam Narrative: Physical exam: General: No acute distress Psych: Alert and oriented x4, full affect HEENT: Normocephalic, atraumatic Heart: Regular rate and rhythm, no murmur rub or gallop Lungs: Clear to auscultation bilaterally Abdomen: Normoactive bowel sounds, soft, no tenderness, rebound, or guarding, no masses, no hepatosplenomegaly, no hernias Skin: No lesions or rashes Lower extremities: No edema or erythema Pelvic exam: Scant bleeding on pad Const: Vital Signs, click to edit/add: Vital Signs - 24 hr 04/24/25 11:57 04/24/25 16:45 04/24/25 20:03 Temperature 98.2 F 98.4 F 98.0 F Pulse Rate [Pulse Oximeter] 80 88 Respiratory Rate 16 16 16 Blood Pressure [Le ft Arm] 126/67 Blood Pressure [Ri ght Arm] 112/69 100/65 102/67 Pulse Oximetry 97 98 98 Oxygen Delivery Me thod Room Air Room Air Room Air 04/24/25 23:17 04/25/25 05:10 Temperature 98.4 F 98.0 F Pulse Rate [Pulse Oximeter] 81 88 Respiratory Rate 16 16 Blood Pressure [Le ft Arm] Blood Pressure [Ri ght Arm] 116/74 110/61 Pulse Oximetry 97 97 Oxygen Delivery Me thod Room Air Room Air OB - DS: Summary Hospital Course Hospital Course: The patient is a 34 year old at 38.6 weeks gestation that was admitted to the Center on 04/23/25 for ECV and induction of labor. An emergency delivery was called for nonreassuring heart tones. However, ultimately she was able to have an uncomplicated vaginal delivery. She delivered a viable female . She is . the patient has done well. Overnight patient had no complaints. Her pain is well controlled on oral pain medications. She is tolerating a regular diet. She has passed flatus. She is ambulating without difficulty. Lochia is scant. She is urinating without galeas. Patient denies chest pain, SOB, n/v, headache, RUQ pain, vision changes, dizziness. Gender: Female Time Spent with Patient Time attestation: Total time spent providing and/or coordinating discharge services: Discharge Plan Discharge Disposition: Home, Self-Care Date of Admission: 04/23/25 15:16 Attending Provider on Discharge: Kristina Perez Consulting Providers: Riya Alfonso Primary Care Provider: Yoselyn Mathias Condition: Stable Anticipated Discharge Date/Time: 04/25/25 09:10 Discharge Medications: New acetaminophen 500 mg Tablet 1,000 mg PO Q6H PRNQty: 30 0RF Dermoplast (with menthol) 20-0.5 % Aerosol 1 spray topical QID PRNQty: 78 0RF docusate sodium 100 mg Capsule 100 mg PO BID PRN (Reason: constipation) Qty: 30 0RF ibuprofen 600 mg Tablet 600 mg PO Q6H PRN30 Days Qty: 30 0RF Lanolin (HPA) 100 % Cream 1 applic topical Q1H PRNQty: 21 0RF Continued trazodone 100 mg tablet 300 mg PO QPM DHA 200 mg capsule 200 mg PO .prn desvenlafaxine succinate 50 mg tablet extended release 24 hr 50 mg PO DAILY lamotrigine 200 mg tablet 250 mg PO DAILY magnesium aspart,citrate,oxide 400 mg magnesium capsule 400 mg PO DAILY desvenlafaxine succinate 25 mg tablet extended release 24 hr 25 mg PO DAILY Discharge Orders: Discharge Order (Routine); Ordered 04/25/25 Ordered By: Kristina Perez Patient Education: OB Vaginal/Bottle Feeding Activity Detail: Discharge instructions were reviewed with the patient including signs and symptoms of infection and home going medications. Lifting Restrictions: 20 pounds for [address] taking narcotic pain medication: Approximately 1 week. Off Work or School for 6 weeks. Nothing vaginally for 6 weeks Symptoms to report to doctor: -Bleeding that saturates more than one pad per hour ? -Passing clots larger than the size of a golf ball ?-Pain not relieved by prescribed medication ?-Fever above 100.4 degrees Fahrenheit ?-A foul vaginal odor ?-Difficulty in emotions, mood and functions ?-Thoughts of hurting yourself and/or ?-Painful, reddened area in your breast ?-Any drainage, redness or tenderness in your IV/epidural site ?-Severe headache that doesn't improve after taking medications ?-Changes in vision, including temporary loss of vision, blurred vision, and/or light sensitivity ?-Upper abdominal pain (usually under ribs on the right side) ?-Decrease in urination or painful, frequent urinating ?-Chest pain ?-Shortness of breath ?-Tenderness or pain with redness and/swelling in the calf(s) of your leg Follow Up with a [facility] provider: ? 2 week visit: Answer concerns for care, screen for anxiety/depression. ? 6 week visit: Annual exam. consultation services are available to all mothers and babies for the first year after delivery.? To make an appointment, please call [phone]. Follow Up Appointments: Yoselyn Mathias MD [Primary Care Provider, Family Practice] Forms: MyHealth Info Instructions
[2025-04-27 13:18] LABS: 6-Acetylmorphine Cord Qual Not Detected ng/g (Cutoff 1); 7-Aminoclonazepam Cord Qual Not Detected ng/g (Cutoff 1); Alpha-OH-Alprazolam Cord Qual Not Detected ng/g (Cutoff 0.5); Alpha-OH-Midazolam Cord Qual Not Detected ng/g (Cutoff 2); Alprazolam Cord Qual Not Detected ng/g (Cutoff 0.5); Amphetamine Cord Qual Not Detected ng/g (Cutoff 5); Benzoylecgonine Cord, Qual Not Detected ng/g (Cutoff 1); Buprenorphine Cord Qual Not Detected ng/g (Cutoff 1); Butalbital Cord Qual Not Detected ng/g (Cutoff 25); Clonazepam Cord Qual Not Detected ng/g (Cutoff 1); Cocaethylene Cord Qual Not Detected ng/g (Cutoff 1); Cocaine Cord Qual Not Detected ng/g (Cutoff 1); Codeine Cord Qual Not Detected ng/g (Cutoff 0.5); Diazepam Cord Qual Not Detected ng/g (Cutoff 1); Dihydrocodeine Cord Qual Not Detected ng/g (Cutoff 1); Fentanyl Cord Qual Not Detected ng/g (Cutoff 0.5); Gabapentin Cord Qual Not Detected ng/g (Cutoff 10); Hydrocodone Cord Qual Not Detected ng/g (Cutoff 0.5); Hydromorphone Cord Qual Not Detected ng/g (Cutoff 0.5); Lorazepam Cord Qual Not Detected ng/g (Cutoff 5); MDMA- Ecstasy Cord Qual Not Detected ng/g (Cutoff 5); Meperidine Cord Qual Not Detected ng/g (Cutoff 2); Methadone Cord Qual Not Detected ng/g (Cutoff 2); Methadone Metabol Cord Qual Not Detected ng/g (Cutoff 1); Methamphetamine Cord Qual Not Detected ng/g (Cutoff 5); Midazolam Cord Qual Not Detected ng/g (Cutoff 1); Morphine Cord Qual Present ng/g (Cutoff 0.5); N-desmethyltramadol Cord Qual Not Detected ng/g (Cutoff 2); Naloxone Cord Qual Not Detected ng/g (Cutoff 1); Norbuprenorphine Cord Qual Not Detected ng/g (Cutoff 0.5); Nordiazepam Cord Qual Not Detected ng/g (Cutoff 1); Norhydrocodone Cord Qual Not Detected ng/g (Cutoff 1); Noroxycodone Cord Qual Not Detected ng/g (Cutoff 1); Noroxymorphone Cord Qual Not Detected ng/g (Cutoff 0.5); O-desmethyltramadol Cord Qual Not Detected ng/g (Cutoff 2); Oxazepam Cord Qual Not Detected ng/g (Cutoff 2); Oxycodone Cord Qual Not Detected ng/g (Cutoff 0.5); Oxymorphone Cord Qual Not Detected ng/g (Cutoff 0.5); Phencyclidine- PCP Cord Qual Not Detected ng/g (Cutoff 1); Phenobarbital Cord Qual Not Detected ng/g (Cutoff 75); Phentermine Cord Qual Not Detected ng/g (Cutoff 8); Propoxyphene Cord Qual Not Detected ng/g (Cutoff 1); THC-COOH Cord Qual Not Detected ng/g; Tapentadol Cord Qual Not Detected ng/g (Cutoff 2); Temazepam Cord Qual Not Detected ng/g (Cutoff 1); Tramadol Cord Qual Not Detected ng/g (Cutoff 2); Zolpidem Cord Qual Not Detected ng/g (Cutoff 0.5); m-OH-Benzoylecgonine Cord Qual Not Detected ng/g (Cutoff 1)
[2025-04-28 16:02] LABS: Treponema pallidum AbTP-PA Non Reactive (Non Reactive)
== END 2025-04-25 11:20 | disposition home or self-care (01) | DRG 560 ==
PROVIDERS: Admitting Provider Obstetrics & Gynecology; PCP Family Medicine; Visit Provider Obstetrics & Gynecology
DX: O32.0XX0 Maternal care for unstable lie, not applicable or unspecified (principal); O32.1XX0 Maternal care for breech presentation, not applicable or unspecified; O76 Abnormality in fetal heart rate and rhythm complicating labor and delivery; O26.893 Other specified pregnancy related conditions, third trimester; Z67.21 Type B blood, Rh negative; O99.214 Obesity complicating childbirth; O99.344 Other mental disorders complicating childbirth; F41.9 Anxiety disorder, unspecified; F32.A Depression, unspecified; Z3A.38 38 weeks gestation of pregnancy; Z37.0 Single live birth
CPT/HCPCS: 36415; 59200; 59412; 76815; 80323; 80326; 80347; 80349; 80355; 80364; 85018; 85025; 85461; 86592; 86593; 86780; 86850; 86870; 86880; 86900; 86901; 88307; A9270; J2250; J2270; J2405; J2590; J2791; J3010; J3105; J7120

== ENCOUNTER 2025-09-25 09:12 | Outpatient (CLI) | payer BC, SELFPAY ==
--- NOTE | 2025-09-25 09:15 | CRLHL7_ITS ---
For Patients: As a result of the Cures Act, medical imaging exams and procedure reports are released immediately into your electronic medical record. You may view this report before your referring provider. If you have questions, please contact your health care provider. OB ULTRASOUND 09.25.2025 INDICATION: Dating and viability. TECHNIQUE: Real time valdivia scale imaging of the fetus was performed. Transvaginal imaging performed. TERRENCE by US: 04/12/2026. GA: 11 w, 4 d. Previous US: Yes, [facility] (don`t have). CRL: 6.9 cm. 13 w 1 d. TERRENCE: 04/01/2026. FHR: 159 BPM. Gestational sac: 5.5 cm. Appears within normal limits. Yolk sac: Not Visualized. Right ovary: Within normal limits. 3.1 x 1.3 1.9 cm. Left ovary: Within normal limits. 3.4 x 1.3 x 2.0 cm IMPRESSION: 1) Single living intrauterine measures 13 weeks 1 day. 2) Sonographic due date 04/01/2026. 3) Small subchorionic hemorrhage measures 6 x 22 x 4 mm. SINCERE ALBERTO M.D. Diagnostic Radiologist [email or web address] DW/Dictated by: Sincere Alberto MD @ 09/27/2025 1:15:00 PM (Electronically Signed)
== END 2025-09-25 09:13 | disposition home or self-care (01) ==
LOC: US 09:14
PROVIDERS: PCP Family Medicine; Visit Provider Advanced Practice Midwife
DX: O20.9 Hemorrhage in early pregnancy, unspecified (principal); Z3A.13 13 weeks gestation of pregnancy; Z13.79 Encounter for other screening for genetic and chromosomal anomalies; N89.8 Other specified noninflammatory disorders of vagina
CPT/HCPCS: 76801

== ENCOUNTER 2025-09-25 10:33 | Outpatient (CLI) | payer BC, SELFPAY | END 2025-09-25 10:34 | disposition home or self-care (01) | PROVIDERS: PCP Family Medicine; Visit Provider Advanced Practice Midwife | DX: Z34.91 Encounter for supervision of normal pregnancy, unspecified, first trimester (principal); Z13.79 Encounter for other screening for genetic and chromosomal anomalies; N89.8 Other specified noninflammatory disorders of vagina | CPT/HCPCS: 80306; 82565; 83020; 83021; 84443; 84450; 84460; 85660; 86703; 86704; 86706; 86762; 86780; 86787; 86803; 86850; 86870; 86900; 86901; 87086; 87340; 87491; 87591 ==